=== PATIENT | female | born 1950 | race Caucasian/White ===

== ENCOUNTER 2018-09-07 05:49 | Day surgery (SDC) | payer BC, MEDICARE ==
[2018-09-06 13:05] VITALS: BMI 38.0
--- NOTE | 2018-09-06 22:21 | HP ---
HISTORY OF PRESENT ILLNESS: Ms. Olivas is a 68-year-old woman presenting for evaluation of lower back pain with neurogenic claudication symptoms and radicular L5 pains. She has an MRI from [facility] that reveals grade 2 spondylolisthesis at L5-S1 with severe bilateral neuroforaminal narrowing at L5. She has treated this with gabapentin and a home exercise routine that actually does fairly well for her, but has reached a point where her symptoms persists despite this course of action, in hopes to discuss definitive treatment measures including surgery. PAST MEDICAL HISTORY: Significant for osteoarthritis, asthma. PAST SURGICAL HISTORY: Right knee replacement. CURRENT MEDICATIONS: Gabapentin and tramadol. ALLERGIES: NO KNOWN DRUG ALLERGIES. PHYSICAL EXAMINATION: GENERAL: The patient is alert and oriented x3. Gait is mildly antalgic. Lower extremity motor exam is normal. Reflexes are equal and present bilaterally at the patella and Achilles tendon. ASSESSMENT: Lumbar spondylolisthesis with radiculopathy. PLAN: Dr. Jacques met with the patient, reviewed imaging, advocated for L5-S1 facetectomy and fusion. He explained to the patient the risks, benefits, and alternatives to the procedure. The patient expressed understanding and elected to move forward with surgery as discussed. I do believe the patient is mentally competent and capable of making medical decisions for herself. We will move forward with surgery as planned. Job ID: [id number]
[2018-09-07] MEDS ORDERED: Bupivacaine HCl 0.5%/Epinephrine 1:200,000/PF 30 ml Vial ONE (06:17)
[2018-09-07] MEDS ORDERED: Thrombin 5000 UNITS/5 ML VIAL ONE (06:17)
[2018-09-07 06:44] LABS: #Basophils 0.1 thou/uL (0.0-0.2); #Eosinphils 0.5 thou/uL (0.0-0.7); #Lymphocytes 1.6 thou/uL (1.20-3.40); #Monocytes 0.4 thou/uL (0.11-0.59); #Neutrophils 2.4 thou/uL (1.40-6.50); %Basophils 1.1 % (0.0-1.0); %Eosinophils 9.7 % (0.0-10.0); %Lymphocytes 33.2 % (21.0-51.0); %Monocytes 7.5 % (0.0-10.0); %Neutrophils 48.5 % (42.0-75.0); Hemoglobin 13.3 g/dL (12.0-16.0); Mean Corpuscular Hemoglobin 33.3 pg (27.0-31.0); Mean Corpuscular Volume 98.1 fL (78.0-98.0); Mean Platelet Volume 6.5 fL (7.4-10.4); Platelet Count 229 thou/uL (130-400)
[2018-09-07 06:48] LABS: INR-International Normal Ratio 0.9; PTT 26.8 SEC (22.9-36.1); Prothrombin Time 12.6 SEC (12.0-14.7)
[2018-09-07] MEDS ORDERED: Midazolam HCl 2 mg/2 ml Vial ONE (06:54)
[2018-09-07] MEDS ORDERED: Fentanyl 100 MCG/2 ML VIAL ONE ×6 (06:54→11:10)
[2018-09-07 07:01] LABS: Anion Gap 10 mmol/L (10-20); BUN (Urea Nitrogen) 15 mg/dL (9.8-20.1); Calc. Creatinine Clearance 121 mL/min (70-130); Calcium 9.3 mg/dL (7.8-10.44); Carbon Dioxide 29 mmol/L (23-31); Chloride 102 mmol/L (98-107); Estimated GFR-MDRD 81; Glucose 101 mg/dL (80-115); Potassium 4.9 mmol/L (3.5-5.1); Sodium 136 mmol/L (136-145)
[2018-09-07] MEDS ORDERED: HYDROmorphone 2 MG/ML VIAL SLOW IVP PRN (09:02)
[2018-09-07] MEDS ORDERED: Promethazine HCl 25 MG/ML VIAL SLOW IVP PRN (09:02)
[2018-09-07] MEDS ORDERED: Morphine Sulfate 2 MG/ML SYRINGE SLOW IVP PRN (09:02)
[2018-09-07] MEDS ORDERED: Ondansetron HCl/PF 4 MG/2 ML Vial IVP PRN (09:02)
[2018-09-07] MEDS ORDERED: Meperidine HCl/PF 25 MG/ML VIAL SLOW IVP PRN (09:02)
[2018-09-07] MEDS ORDERED: PACU-Morphine 4MG/ML VIAL SLOW IVP PRN (09:02)
[2018-09-07] MEDS ORDERED: Promethazine HCl 25 MG/ML VIAL IM PRN (09:02)
--- NOTE | 2018-09-07 10:29 | OP ---
DATE OF PROCEDURE: 09/07/2018 [employer] EQUIPMENT INSTALLER: Cade Lucia PA-C INDICATION: Pain. DIAGNOSES: Grade 2 spondylolisthesis of L5 upon S1 with back pain and lumbar radiculopathy. PROCEDURES PERFORMED: Bilateral L5-S1 decompression and facetectomies, bilateral L5-S1 placement of posterior lateral instrument hardware including pedicle screws, placement of allograft, and placement of autograft. ANESTHESIA: General. DESCRIPTION OF PROCEDURE: The patient was brought into the operating room and placed under general anesthesia. She was flipped from the supine to prone position on the operating room table. A linear incision was planned over L5-S1. After prepping and draping and after an appropriate preoperative pause, the incision was created. The underlying soft tissues were swept away from midline. Self-retaining retractors were placed in the wound for optimal exposure. After confirming the appropriate level with C-arm fluoroscopy, the lamina of L5 was removed as were the facet joints at the L5-S1 interface. After identifying the L5 and S1 pedicles, pedicle screws with the plate were placed with the aid of C-arm fluoroscopy. An intraoperative 3D CT scan was then performed, which confirmed placement of hardware. Rods were then placed across the screw head and then, final tightened. Allograft and autograft materials were then placed in the lateral confines of the instrumentation construct. The wound was irrigated. Hemostasis was maintained throughout. The wound was then closed in anatomic layers and a pressure dressing was applied. There were no known procedural complications. Job ID: [id number]
[2018-09-07] MEDS ORDERED: Morphine 4 MG/ML VIAL ONE (11:29)
[2018-09-07] MEDS ORDERED: Morphine 2 MG/ML SYRINGE ONE (11:48)
== END 2018-09-07 14:48 | disposition home or self-care (01) ==
LOC: SDC 05:49
PROVIDERS: ATTEND Neurological Surgery
PROC: 0SG3071 Fusion of Lumbosacral Joint with Autologous Tissue Substitute, Posterior Approach, Posterior Column, Open Approach (ICD-10-PCS; principal; 2018-09-07)
DX: M43.17 Spondylolisthesis, lumbosacral region (principal); M54.16 Radiculopathy, lumbar region; J45.909 Unspecified asthma, uncomplicated; M19.90 Unspecified osteoarthritis, unspecified site; Z88.6 Allergy status to analgesic agent; Z91.041 Radiographic dye allergy status; Z91.013 Allergy to seafood; Z79.1 Long term (current) use of non-steroidal anti-inflammatories (NSAID); Z79.899 Other long term (current) drug therapy
CPT/HCPCS: 76000; 80048; 85025; 85610; 85730; 93005; 93010; C1713; J0670; J0690; J2250; J2270; J3010